=== PATIENT | female | born 1965 | race Caucasian/White ===

== ENCOUNTER 2017-07-12 07:08 | Day surgery (SDC) | payer MEDICAID ==
[2017-07-12] MEDS ORDERED: HEPARIN IN NS 1000Units/500mL 1,500 ML ONE (07:18)
[2017-07-12] MEDS ORDERED: LIDOCAINE HCL 2 %PF INJ 10ML AMP IJ ONE (07:18)
[2017-07-12] MEDS ORDERED: IODIXANOL 320MG/ML 100ML BTL IV ONE (07:18)
[2017-07-12] MEDS ORDERED: ANGIOMAX 250 MG VIAL IV ONE (07:53)
[2017-07-12] MEDS ORDERED: fentaNYL CITRATE 100 MCG/2 ML VL ONE (07:53)
[2017-07-12] MEDS ORDERED: SODIUM CHL 0.9% 50 ML ONE (07:54)
[2017-07-12] MEDS ORDERED: MIDAZOLAM HCL 1MG/1ML-2 ML VIAL ONE (07:54)
[2017-07-12] MEDS ORDERED: VERAPAMIL 2.5MG/ML INJ 2ML VIAL IV ONE (07:55)
[2017-07-12] MEDS ORDERED: HEPARIN SODIUM (PORCINE) 5000 UNITS/ML 1ML VIAL ONE (08:29)
== END 2017-07-12 10:55 | disposition home or self-care (01) ==
LOC: CATH 07:08
PROVIDERS: ATTEND Internal Medicine
DX: R94.39 Abnormal result of other cardiovascular function study (principal)
CPT/HCPCS: 93454; C1769; C1894; J0583; J1644; J3010; J7030; 99152; 99153; J2250; Q9967